=== PATIENT | male | born 1935 | race Caucasian/White ===

== ENCOUNTER 2016-09-29 00:15 | Emergency (ER) | payer MEDICARE, MEDICAID ==
[~2016-09-29] VITALS: Ht 177.8 cm; Wt 84.8 kg
[~2016-09-29 00:15] MED LIST: ARICEPT10 MG PO; ARTIFICIAL TEA1 EACH EYEBOTH; COLACE100 MG PO; COLCRYS0.6 MG PO; FLOMAX0.4 MG PO; GENTEAL PM OIN3.5 G1 TOP; HUMALOG KW200 UNIT/1 SUBCUT; IMODIUM2 MG PO; LANTUS100 UNIT/1 SUBCUT; LIPITOR80 MG PO; LOPRESSOR25 MG PO; LOTENSIN10 MG PO; MAALOX ADVANCE355 ML PO; NEURONTIN100 MG PO; NORCO 325-5 MG1 TAB PO; NORVASC10 M1 PO; NOVOLOG FL100 UNIT/1 SUBCUT; NOVOLOG100 UNIT/2 SUBCUT; OMNICEF300 MG PO; ORALONE5 GM TOP; PROTONIX40 MG PO; SYNTHROID50 MCG PO; TOUJEO SOL300 UNIT/1 SUBCUT; TRIAMCINOLONE A15 G2 TOP; TYLENOL325 MG PO; ULTRAM50 MG PO; VALTREX1000 MG PO
== END 2016-09-29 00:36 | disposition short-term general hospital (02) ==
LOC: ER 00:15
DX: S51.812A Laceration without foreign body of left forearm, initial encounter (principal); W06.XXXA Fall from bed, initial encounter

== ENCOUNTER → 2016-10-07 | Outpatient (CLI) | payer MEDICARE, MEDICAID | END | disposition short-term general hospital (02) | LOC: CLNEPH 14:29 | DX: I12.9 Hypertensive chronic kidney disease with stage 1 through stage 4 chronic kidney disease, or unspecified chronic kidney disease (principal); N18.3 Chronic kidney disease, stage 3 (moderate); C64.1 Malignant neoplasm of right kidney, except renal pelvis; M10.00 Idiopathic gout, unspecified site; N20.0 Calculus of kidney; I25.10 Atherosclerotic heart disease of native coronary artery without angina pectoris; Z95.5 Presence of coronary angioplasty implant and graft ==